=== PATIENT | male | born 1935 | race Caucasian/White ===

== ENCOUNTER 2017-12-12 22:33 | Emergency (ER) | payer OTHER, MEDICARE ==
[~2017-12-12 22:33] MED LIST: ATROPINE SULFATE INJ 1 MG/10 ML DISP.SYRIN IV ONE; EPINEPHRINE INJ 1 MG/10 ML DISP.SYRIN ONE; SODIUM BICARBONATE 8.4% INJ 50 MEQ/50 ML DISP.SYRIN ONE
[2017-12-12] MEDS ORDERED: ASPIRIN 81 MG TABLET, CHEWABLE PO ONE (22:50)
--- NOTE | 2017-12-12 22:52 | ER Document Report ---
ED General - General Stated Complaint: OTHER Time Seen by Provider: 12/12/17 22:33 Mode of Arrival: Medic Information source: Patient, Relative, Emergency Med Personnel Cannot obtain history due to: Unstable vital signs Notes: 82-year-old male history of aortic aneurysm repair 3 years ago presents in a bradycardic rhythm paced by EMS, they note the call was out for chest pain numbness in the upper extremities. When they arrived patient began to bradycardia down and a began transcutaneously pacing the patient TRAVEL OUTSIDE OF THE [place] IN LAST 30 DAYS: No - HPI Onset: Just prior to arrival Onset/Duration: Sudden Quality of pain: Sharp Severity: Severe Pain Level: 5 Associated symptoms: Chest pain, Weakness, Other Exacerbated by: Denies Relieved by: Denies Similar symptoms previously: No Recently seen / treated by doctor: No - Related Data Allergies/Adverse Reactions: No Known Allergies Allergy (Verified 09/12/15 19:00) Past Medical History - Social History Smoking Status: Never Smoker Cigarette use (# per day): No Chew tobacco use (# tins/day): No Smoking Education Provided: No Family History: Reviewed & Not Pertinent - Past Medical History Cardiac Medical History: Reports: Hx Hypercholesterolemia, Hx Hypertension Denies: Hx Heart Attack Pulmonary Medical History: Denies: Hx Asthma Neurological Medical History: Reports: Hx Cerebrovascular Accident - TIA. Denies: Hx Seizures Endocrine Medical History: Reports: Hx Diabetes Mellitus Type 2 GI Medical History: Reports: Hx Hiatal Hernia - repaired. Denies: Hx Hepatitis , Hx Ulcer Musculoskeltal Medical History: Reports Hx Arthritis Infectious Medical History: Denies: Hx Hepatitis Past Surgical History: Reports: Hx Abdominal Surgery - hernia repair, Hx Vascular Surgery - aortic aneurysm stent. Denies: Hx Open Heart Surgery, Hx Pacemaker - Immunizations Hx Diphtheria, Pertussis, Tetanus Vaccination: Yes Review of Systems - Review of Systems Notes: REVIEW OF SYSTEMS: CONSTITUTIONAL : Denies fever, chills, or sweats. Denies recent illness. EENT: Denies eye, ear, throat, or mouth pain or symptoms. Denies nasal or sinus congestion or discharge. Denies throat, tongue, or mouth swelling or difficulty swallowing. CARDIOVASCULAR: Admits to chest pain to EMS RESPIRATORY: Denies cough, cold, or chest congestion. Denies shortness of breath, difficulty breathing, or wheezing. GASTROINTESTINAL: Denies abdominal pain or distention. Denies nausea, vomiting , or diarrhea. Denies blood in vomitus, stools, or per rectum. Denies black, tarry stools. Denies constipation. GENITOURINARY: Denies difficulty urinating, painful urination, burning, frequency, blood in urine, or discharge. MUSCULOSKELETAL: Denies back or neck pain or stiffness. Denies joint pain or swelling. SKIN: Denies rash, lesions or sores. HEMATOLOGIC : Denies easy bruising or bleeding. LYMPHATIC: Denies swollen, enlarged glands. NEUROLOGICAL: Admits to numbness of bilateral extremities to EMS PSYCHIATRIC: Denies anxiety or stress. Denies depression, suicidal ideation, or homicidal ideation. ALL OTHER SYSTEMS REVIEWED AND NEGATIVE. Dictation was performed using [employer] voice recognition software PHYSICAL EXAMINATION: GENERAL: Patient noted to be in extremis HEAD: Atraumatic, normocephalic. EYES: Pupils are dilated bilateral ENT: Nares patent, oropharynx clear without exudates. Moist mucous membranes. NECK: No range of motion LUNGS: Patient intubated decreased breath sounds on the right HEART: Patient was paced upon arrival however one pacer is turned off he is in asystole ABDOMEN: Abdomen significantly distended. Musculoskeletal: No range of motion no movement of extremities NEUROLOGICAL: GCS 3 SKIN: Patient is cold purple Course - Re-evaluation Re-evalutation: Upon arrival pacer was turned off and the patient was noted not to have a rhythm , multiple rounds of epinephrine were given, chest compressions 12/12/17 22:51 [facility] called, pt is bradycardic, on dopamine drip , ct abd ordered for concern of dissection 12/12/17 22:56 Dr Jorge accepts pt for transfer 12/12/17 23:12 Patient did go back into cardiac arrest asystole and PEA the rounds pulses have returned patient is again being paced will attempt to go to CT again 12/12/17 23:28 Patient again went into asystole 3 more rounds of epinephrine were given he continued to stay in asystole and with family and the room time of was called at 2325 12/13/17 00:50 12/13/17 00:51 I do believe the patient's was caused by aortic dissection - Laboratory Result Diagrams: 12/12/17 22:50 12/12/17 22:50 Laboratory results interpreted by me: 0512/12/17 12/12/17 22:40 22:50 22:50 RBC 3.76 L Hgb 11.7 L Hct 37.6 L MCV 100 H MCHC 31.2 L RDW 16.2 H Plt Count 103 L Seg Neutrophils % 32.3 L Lymphocytes % 54.6 H Potassium 3.4 L Chloride 111 H Carbon Dioxide 12 L Anion Gap 21 H Est GFR (Non-Af Amer) 58 L Glucose 266 H POC Glucose 147 H AST 61 H ALT 73 H Total Protein 5.1 L Albumin 2.8 L - Diagnostic Test Radiology reviewed: Image reviewed - Chest x-ray single view notes appropriate intubation, Reports reviewed Critical Care Note - Critical Care Note Total time excluding time spent on procedures (mins): 45 Comments: 45 minutes of critical care time spent in direct contact evaluating and reevaluating the patient, treating symptoms, reviewing labs and studies and speaking with family and consultants excluding any procedures Discharge - Discharge Clinical Impression: Cardiac arrest 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
[2017-12-12 23:08] LABS: ABSOLUTE EOSINOPHILS # (AUTO) 0.2 10^3/uL (0.0-0.6); ABSOLUTE LYMPHOCYTES (AUTO) 4.1 10^3/uL (0.5-4.7); ABSOLUTE MONOCYTES (AUTO) 0.7 10^3/uL (0.1-1.4); ABSOLUTE NEUT (AUTO) 2.4 10^3/uL (1.7-8.2); BASOPHILS % (AUTO) 0.3 % (0-2); HEMATOCRIT 37.6 % (37.9-51.0); HEMOGLOBIN 11.7 g/dL (13.5-17.0); LYMPHOCYTES % (AUTO) 54.6 % (13-45); MEAN CORPUSCULAR HEMOGLOBIN 31.2 pg (27.0-33.4); MEAN CORPUSCULAR HGB CONC 31.2 g/dL (32.0-36.0); MEAN CORPUSCULAR VOLUME 100 fl (80-97); MONOCYTES % (AUTO) 9.8 % (3-13); PLATELET COUNT 103 10^3/uL (150-450); RED BLOOD COUNT 3.76 10^6/uL (4.35-5.55); RED CELL DISTRIBUTION WIDTH 16.2 % (11.5-14.0); SEGMENTED NEUTROPHILS % (AUTO) 32.3 % (42-78); TOTAL CELLS COUNTED % (AUTO) 100 %; WHITE BLOOD COUNT 7.4 10^3/uL (4.0-10.5)
--- NOTE | 2017-12-12 23:08 | RADIOLOGY REPORT (SQ) ---
EXAM DESCRIPTION: CHEST SINGLE VIEW COMPLETED DATE/TIME: 12/12/2017 10:56 pm REASON FOR STUDY: post intubation COMPARISON: None. EXAM PARAMETERS: NUMBER OF VIEWS: One view. TECHNIQUE: Single frontal radiographic view of the chest acquired. RADIATION DOSE: NA LIMITATIONS: None. FINDINGS: LUNGS AND PLEURA: Diffuse increased interstitial and alveolar opacities. No pneumothorax. No significant effusion. MEDIASTINUM AND HILAR STRUCTURES: Overall Stable given slight differences in technique and rotation. HEART AND VASCULAR STRUCTURES: Overall Stable given slight differences in technique and rotation. BONES: No acute findings. HARDWARE: Endotracheal tube tip overlies the lower 3rd of the trachea, approximately 2.6 cm above the level of the [place]. OTHER: No other significant finding. IMPRESSION: Endotracheal tube tip overlies the lower 3rd of the trachea, approximately 2.6 cm above the level of the [place].Diffuse increased interstitial and alveolar opacities. No pneumothorax. No significant effusion. TECHNICAL DOCUMENTATION: JOB ID: [id number] 2010 [employer]- All Rights Reserved Reading location - IP/workstation name: [email or web address]
[2017-12-12] MEDS ORDERED: EPINEPHRINE INJ/PF 1 MG/1 ML AMPULE ONE (23:14)
[2017-12-12 23:17] LABS: ALANINE AMINOTRANSFERASE 73 U/L (21-72); ALBUMIN 2.8 g/dL (3.5-5.0); ALKALINE PHOSPHATASE 43 U/L (38-126); ASPARTATE AMINO TRANSFERASE 61 U/L (17-59); BILIRUBIN,DIRECT 0.2 mg/dL (0.0-0.4); BILIRUBIN,TOTAL 0.2 mg/dL (0.2-1.3); BLOOD UREA NITROGEN 19 mg/dL (7-20); CALCIUM 8.8 mg/dL (8.4-10.2); CREATINE KINASE 120 U/L (55-170); GLUCOSE 266 mg/dL (75-110); POTASSIUM 3.4 mmol/L (3.6-5.0); TOTAL PROTEIN 5.1 g/dL (6.3-8.2)
[2017-12-12 23:23] LABS: ANION GAP 21 (5-19); CARBON DIOXIDE 12 mmol/L (22-30); CHLORIDE 111 mmol/L (98-107); SODIUM 143.8 mmol/L (137-145)
[2017-12-12 23:36] LABS: CREATINE KINASE MB 3.37 ng/mL (<4.55)
[2017-12-12 23:41] LABS: TROPONIN I 0.175 ng/mL
[2017-12-13] MEDS ORDERED: CALCIUM GLUCONATE 1000 MG/10 ML INJ IV ONE (00:55)
[2017-12-13] MEDS ORDERED: ATROPINE SULFATE INJ 1 MG/1 ML VIAL IV ONE (00:55)
[2017-12-13] MEDS ORDERED: DOPAMINE HCL/DEXTROSE 5%-WATER 800 MG/250 ML RTUINJ IV PRN (00:55)
[2017-12-13] MEDS ORDERED: DEXTROSE 5%-WATER 250 ML with EPINEPHRINE/PF 1 MG IV PRN ×2 (00:55)
[2017-12-13] MEDS ORDERED: SODIUM BICARBONATE 8.4% INJ 50 MEQ/50 ML DISP.SYRIN IV ONE (00:56)
[2017-12-13 02:18] VITALS: BP 189/49
--- NOTE | 2017-12-13 09:11 | EKG REPORT ---
SEVERITY:- ABNORMAL ECG - A FLUTTER WITH FIXED CONDUCTION VS ACCELERATED JUNCTIONAL ESCAPE RHYTHM LEFT BUNDLE BRANCH BLOCK : Confirmed by: Sudarshan Licea 13-Dec-2017 09:10:46
== END 2017-12-12 23:25 | disposition expired ==
LOC: ER 22:33
DX: I71.03 Dissection of thoracoabdominal aorta (principal); I46.9 Cardiac arrest, cause unspecified; I10 Essential (primary) hypertension; E11.9 Type 2 diabetes mellitus without complications; Z86.73 Personal history of transient ischemic attack (TIA), and cerebral infarction without residual deficits; R14.0 Abdominal distension (gaseous)
CPT/HCPCS: 93005; 99291; 92950; 96374; 96375; 36415; 82553; 82962; 82550; 85025; 80053; 84484; 71045; 93010; J0461; J0171; J3490